=== PATIENT | male | born 1990 | race African-American/Black ===

== ENCOUNTER 2019-06-11 23:37 | Emergency (ER) | payer OTHER ==
[~2019-06-11] VITALS: Ht 167.6 cm; Wt 95.3 kg
--- NOTE | 2019-06-12 | NUR ---
URINE COLLECTED AND SENT TO LAB
--- NOTE | 2019-06-12 | NUR ---
PT BIBSELF C/O SI, DENIES HI OR HALLUCINATIONS. PT AAOX4, CALM AND COOPERATIVE. RESPIRATIONS EVEN AND UNLABORED. SKIN INTACT. ABLE TO AMBULATE WITH STEADY GAIT. BELONGINGS COLLECTED AND PLACED IN LOCKER. PT PLACED IN GOWN. SITTER AT BEDSIDE. WILL CONTINUE TO MONITOR.
--- NOTE | 2019-06-12 00:04 | NUR ---
PRIVATE DUTY RN AT BEDSIDE FOR BLOOD DRAW
[2019-06-12 00:08] LABS: BASOPHILS % (AUTO) 0.8 % (0.0-2.0); EOSINOPHILS % (AUTO) 9.3 % (0.0-6.0); HEMATOCRIT 46 % (39-51); HEMOGLOBIN 15.7 g/dL (13.5-17.5); LYMPHOCYTES # (AUTO) 1.9 /CMM (0.8-4.8); LYMPHOCYTES % (AUTO) 33.1 % (20.0-44.0); MEAN CORPUSCULAR HGB CONC 34 g/dl (31.0-36.0); MEAN CORPUSCULAR VOLUME 87 fL (80-96); MONOCYTES # (AUTO) 0.4 /CMM (0.1-1.30); MONOCYTES % (AUTO) 6.1 % (2.0-12.0); NEUTROPHILS % (AUTO) 50.7 % (43.0-81.0); PLATELET COUNT (AUTO) 273 /CMM (150-450); RED BLOOD CELL COUNT(AUTO) 5.34 MIL/uL (4.5-6.0); WHITE BLOOD COUNT (AUTO) 5.9 K/uL (4.3-11.0)
[2019-06-12 00:13] LABS: APPEARANCE,URINE Clear (CLEAR); BILIRUBIN,URINE Negative (NEGATIVE); BLOOD, URINE Negative Ery/uL (NEGATIVE); COLOR,URINE Yellow (YELLOW); KETONES,URINE Negative (NEGATIVE); LEUKOCYTE ESTERASE ,URINE Negative (NEGATIVE); NITRITE, URINE Negative (NEGATIVE); PH,URINE 5.5 (5.0-8.0); PROTEIN,URINE Negative (NEGATIVE); UGLUCOSE Negative (NEGATIVE); UROBILINOGEN,URINE 0.2 EU/dL (0.2)
[2019-06-12 00:32] LABS: CALCIUM, SERUM 9.4 mg/dL (8.5-10.1); CARBON DIOXIDE 30 mmol/L (21-32); CHLORIDE 106 mmol/L (98-107); CREATININE 1.8 mg/dL (0.6-1.3); GLUCOSE 81 mg/dL (74-106); POTASSIUM 3.7 mmol/L (3.5-5.1); SODIUM SERUM 143 mmol/L (136-145); UREA NITROGEN, BLOOD 15 mg/dL (7-18)
[2019-06-12 00:37] LABS: ALANINE AMINOTRANSFERASE 40 U/L (12-78); ALBUMIN 4.1 g/dL (3.4-5.0); ALCOHOL, BLOOD < 3 mg/dL (0-0); ALKALINE PHOSPHATASE 96 U/L (46-116); ASPARTATE AMINOTRANSFERASE 25 U/L (15-37); BILIRUBIN,DIRECT 0.1 mg/dL (0.0-0.2); BILIRUBIN,TOTAL 0.7 mg/dL (0.2-1.0); TOTAL PROTEIN, SERUM 7.9 g/dL (6.4-8.2)
[2019-06-12 00:38] LABS: ACETAMINOPHEN 0 ug/ml (10-30); SALICYLATE 2.6 mg/dL (2.8-20.0)
--- NOTE | 2019-06-12 01:31 | NUR ---
PT MEDICALLY CLEARED FOR PSYCH ADMISSION. FAXED CLINICAL INFORMATION TO [facility]
--- NOTE | 2019-06-12 04:17 | NUR ---
DAIANA ARRIAGA AT [facility], NO BEDS AVAILABLE UNTIL AFTER 0700
--- NOTE | 2019-06-12 07:34 | NUR ---
ORDERED BREAKFAST TRAY
--- NOTE | 2019-06-12 08:04 | NUR ---
SPOKE TO TYREL OF [facility], WILL CHECK BED IN [facility]. WILL CALL BACK.
--- NOTE | 2019-06-12 08:09 | NUR ---
TWILA VILLEGAS ACCEPTED PT GOING TO UNIT 1 REPORT # [phone]
--- NOTE | 2019-06-12 08:10 | NUR ---
FOOD TRAY PROVIDED.
--- NOTE | 2019-06-12 08:15 | NUR ---
REPORT GIVEN TO MATTHEW GUERRERO FOR [facility].
--- NOTE | 2019-06-12 08:50 | NUR ---
TRANSPORTATION SET UP FOR PT CONFIRMATION NUMBER #[id number] ETA [id number]
--- NOTE | 2019-06-12 10:30 | NUR ---
SPOKED TO SRIDEVI OF CALL THE CAR FOR BLS TRANSPORT TO [facility]
--- NOTE | 2019-06-12 10:33 | NUR ---
NANCY AWAN 1200H TRIP#[id number]
--- NOTE | 2019-06-12 12:00 | NUR ---
REPORT GIVEN TO EMT FOR PT TRANSPORT.
[2019-06-12 12:17] VITALS: BP 139/96
== END 2019-06-12 12:22 ==
LOC: ER 23:50
DX: R45.851 Suicidal ideations (principal); F12.10 Cannabis abuse, uncomplicated; I10 Essential (primary) hypertension; E78.5 Hyperlipidemia, unspecified; F17.200 Nicotine dependence, unspecified, uncomplicated; Z88.8 Allergy status to other drugs, medicaments and biological substances
CPT/HCPCS: 36415; 80048; 80076; 80305; 80307; 80329; 81001; 85025; 99285; G0480; 81000-TC